=== PATIENT | male | born 2000 | race Hispanic/Latino ===

== ENCOUNTER 2021-05-10 02:58 | Emergency (ER) | payer SELFPAY ==
[~2021-05-10] VITALS: Ht 172.7 cm; Wt 84.4 kg
[2021-05-10] MEDS ORDERED: KETOROLAC TROMETHAMINE 30 MG/ML VIAL IM STA (03:04)
[2021-05-10] MEDS ORDERED: KETOROLAC TROMETHAMINE 30 MG/ML VIAL IV STA (03:09)
[2021-05-10] MEDS ORDERED: SODIUM CHLORIDE 0.9% 1000ML 1,000 ML IV ONE ×2 (03:15)
[2021-05-10] MEDS ORDERED: LACTATED RINGER'S 1,000 ML INJ ONE (03:15)
[2021-05-10] MEDS ORDERED: HYDROCODONE/APAP 5MG-325MG TAB PO ONE (03:30)
[2021-05-10] MEDS ORDERED: MORPHINE SULFAT15 MG PO (04:02)
[2021-05-10 04:13] VITALS: BP 118/62
== END 2021-05-10 04:23 | disposition home or self-care (01) ==
LOC: EDSEX 02:58 → ER 03:01
DX: S42.302A Unspecified fracture of shaft of humerus, left arm, initial encounter for closed fracture (principal); W18.39XA Other fall on same level, initial encounter; Y93.01 Activity, walking, marching and hiking; Y92.008 Other place in unspecified non-institutional (private) residence as the place of occurrence of the external cause; F17.210 Nicotine dependence, cigarettes, uncomplicated
CPT/HCPCS: 29125; 73060; 73080; 99284; J1885